=== PATIENT | female | born 1985 ===

== ENCOUNTER 2020-09-21 13:29 | Outpatient (REF) | payer OTHER, SELFPAY ==
[2020-09-21 14:15] LABS: COVID-19 Test Negative (Negative)
== END 2020-09-21 13:30 | disposition home or self-care (01) ==
LOC: HO.EMPCOV 13:29
PROVIDERS: Visit Provider Internal Medicine
DX: Z20.828 Contact with and (suspected) exposure to other viral communicable diseases (principal)
CPT/HCPCS: 87635; C9803

== ENCOUNTER 2020-09-24 15:19 | Outpatient (REF) | payer OTHER, SELFPAY ==
[2020-09-24 15:41] LABS: COVID-19 Test Negative (Negative)
== END 2020-09-24 15:20 | disposition home or self-care (01) ==
LOC: HO.LAB 15:19
PROVIDERS: Visit Provider Internal Medicine
DX: Z20.828 Contact with and (suspected) exposure to other viral communicable diseases (principal)
CPT/HCPCS: 87635; C9803

== ENCOUNTER 2021-03-01 08:51 | Outpatient (REF) | payer OTHER, SELFPAY ==
[2021-03-01 09:17] LABS: COVID-19 Test Negative (Negative)
== END 2021-03-01 08:52 | disposition home or self-care (01) ==
LOC: HO.EMPCOV 08:51
PROVIDERS: Visit Provider Internal Medicine
DX: Z20.822 Contact with and (suspected) exposure to COVID-19 (principal)
CPT/HCPCS: 36415; 87635; C9803

== ENCOUNTER 2021-04-02 21:21 | Emergency (ER) | payer OTHER, SELFPAY ==
--- NOTE | ~2021-04-02 | XR_ITS ---
EXAMINATION: XR NASAL BONES CLINICAL INFORMATION: Trauma. Pain. Epistaxis COMPARISON: None TECHNIQUE: 3 views of the nasal bones were obtained. FINDINGS: No fracture. Nasal bones and maxillary spines are intact. Paranasal sinuses are normally aerated. XR/XR nasal bones min 3V IMPRESSION: Unremarkable examination.
[2021-04-02 23:03] VITALS: BP 119/79; PULSE 91; RESP 14; TEMP 36.9; O2SAT 99; BMI 25.7
--- NOTE | 2021-04-03 00:12 | ED_ITS ---
HPI - General Adult General Chief complaint: Head Injury Stated complaint: nose inj Time Seen by Provider: 04/03/21 00:10 Source: patient Mode of arrival: ambulatory History of Present Illness HPI narrative: 35-year-old female without significant past medical history who presents after stating she stepped on a rake which cause a handle to flip up and strike her in the nose. She states that she had copious amounts of bleeding afterwards and was concerned that she may have fractured her nose. She denies any headache or visual changes or LOC. Related Data Previous Rx's Medication Instructions Recorded nitrofurantoin 100 mg PO BID 5 Days #10 cap 09/20/20 monohydrate/macrocrystals 100 mg capsule Allergies Allergy/AdvReac Type Severity Reaction Status Date / Time Penicillins [PENICILLINS] Allergy Unknown DIFFICULTY Unverified 07/26/20 17:03 BREATHING eggs Allergy Unknown Uncoded 05/03/20 00:00 penicillin Allergy Unknown Uncoded 05/03/20 00:00 Review of Systems Review of Systems: Pertinent positives and negatives as stated in HPI 10 point review of systems is otherwise negative. PMFSH Past Medical History Source: nursing notes reviewed Medical History No known health problems Social History Social History Advance Directives: No Patient : No Physical Exam Vital Signs: Vital Signs: Last Vital Signs Temp 98.4 F 04/02/21 23:03 Pulse 91 04/02/21 23:03 Resp 14 04/02/21 23:03 BP 119/79 04/02/21 23:03 Pulse Ox 99 04/02/21 23:03 Body Mass Index 25.7 VITAL SIGNS: Reviewed. GENERAL: Well developed, well nourished, in no acute distress. HEAD: Normocephalic/atraumatic EYES: PERRLA, EOMI EARS: Ext canals without abnormality NOSE: Nares patent bilateral, no septal hematoma OROPHARYNX: no oral lesions noted, posterior pharynx clear LUNGS: Normal breath sounds. SpO2<99> CARDIOVASCULAR: Regular rate and rhythm without noted murmurs ABDOMEN: Soft, non-tender, non-distended with bowel sounds. Course Course Course Narrative: 35-year-old female with history and clinical presentation consistent with contusion versus fracture to nose. On review of x-ray there is no evidence of fracture and patient was provided with combination analgesics and discharge in stable condition to home. Discharge Plan Discharge Clinical Impression: Contusion of nose, initial encounter Patient Disposition: Home, Self-Care Instructions: Nasal Contusion (ED) Additional Instructions: 1. Tylenol 1000 mg, orally, every 6 hours as needed for pain control. Do not exceed 4000 mg within 24 hours. 2. Ibuprofen 400 mg, orally with milk or food, every 6 hours as needed pain control. 3. In addition, you may apply ice for 5-10 minutes on unexposed skin for additional pain relief. 4. Please follow up with the primary care provider in the next 2-3 days for re- evaluation. Return to the ER for any acute worsening of your symptoms. Prescriptions: No Action nitrofurantoin monohyd/m-cryst [Macrobid] 100 mg capsule 100 mg PO BID 5 Days Qty: 10 RF: 0 Referrals: Physician,Unknown [Primary Care Provider] - 2 days
[2021-04-03] MEDS: Ibuprofen 400 MG TABLET PO (00:26)
[2021-04-03] MEDS: Acetaminophen 325 MG TABLET 975 MG PO (00:27)
== END 2021-04-03 00:37 | disposition home or self-care (01) ==
PROVIDERS: Emergency Provider Student in an Organized Health Care Education/Training Program
DX: S00.33XA Contusion of nose, initial encounter (principal); W22.8XXA Striking against or struck by other objects, initial encounter; Y93.H2 Activity, gardening and landscaping; Y92.017 Garden or yard in single-family (private) house as the place of occurrence of the external cause; Y99.9 Unspecified external cause status
CPT/HCPCS: 70160; 99283; 99284

== ENCOUNTER 2023-02-02 10:14 | Emergency (ER) | payer OTHER, SELFPAY ==
--- NOTE | ~2023-02-02 | XR_ITS ---
EXAMINATION: XR HIP, RIGHT CLINICAL INFORMATION: Pain, status post fall COMPARISON: None available. TECHNIQUE: Two views of the right hip. Pelvis one view FINDINGS: There are lucencies projected over the femoral neck and intertrochanteric region, suspected to be to overlapping densities. No definite acute fracture. No dislocation. Hip joint space is maintained. Left hip joint is intact. No acute pubic rami fractures. No pelvic fractures seen. SI joints and symphysis pubis are intact. No abnormal soft tissue calcification. XR/XR hip RT w PEL1V IMPRESSION: No convincing radiographically evident acute right hip fracture or dislocation. Lucencies projected over the proximal right femur, appear to be related to overlapping densities. If there is clinical concern for radiographically occult injury, persistent symptoms, further evaluation with CT or MRI can be obtained, as clinically warranted.
--- NOTE | ~2023-02-02 | CT_ITS ---
EXAMINATION: CT FEMUR WITHOUT CONTRAST, RIGHT CLINICAL INFORMATION: Pain. Evaluate for a fracture. Fall. COMPARISON: Right hip and pelvic radiographs dated 02/02/2023. TECHNIQUE: Contiguous axial CT images of the right femur were obtained without contrast. Sagittal and coronal reformats were provided and reviewed. This CT examination was performed using dose optimization techniques as appropriate, variously including the following: *Automated exposure control *Adjustment of mA and/or kV according to patient size (this includes techniques or standardized protocols for targeted exams where dose is matched to indication/reason for exam; i.e. extremities or head) *Use of iterative reconstruction technique DLP: 305 mGy-cm FINDINGS: No acute fracture or dislocation. No concerning lytic or blastic osseous lesion. No evidence of avascular necrosis. No significant joint space narrowing or marginal osteophytes. Tiny accessory ossicle adjacent to the acetabulum. No abnormal soft tissue mass or fluid collection. No significant joint effusion. The visualized intrapelvic structures are unremarkable. The visualized muscles and tendons are grossly intact however, evaluation is limited on CT examination. CT/CT femur RT wo IV con IMPRESSION: No acute fracture or dislocation.
[2023-02-02 10:20] VITALS: BP 125/53; PULSE 71; RESP 18; TEMP 36.9; O2SAT 99; BMI 29.9
--- NOTE | 2023-02-02 10:46 | ED.GENADULT ---
HPI - General Adult General Chief complaint: Extremity Problem Stated complaint: l hip pain fall 2wks ago Time Seen by Provider: 02/02/23 10:42 Source: patient Mode of arrival: ambulatory Limitations: no limitations History of Present Illness HPI narrative: Patient is a 37 year old assigned female at with no reported medical history presenting to the emergency department today with right leg pain. Patient states that on January 20, she fell down 3 steps and landed on her right upper leg / hip. Patient states that she recently is having increasing right sided upper leg pain that is worse with weight bearing on that side. Patient denies any dizziness, lightheadedness, abdominal pain, nausea, vomiting, fever, chills, blurry vision, double vision, loss of vision, chest pain, difficulty breathing, shortness of breath, back pain, night sweats, pain with urination, increased urinary frequency, increased urinary urgency, blood in [his/her/their] urine or stool, syncope or a near syncopal episode, bowel incontinence, bladder incontinence, bowel retention, bladder retention, or any other complaints at this time. Onset (ago): day(s) () Location: right and lower extremity Radiation: non-radiation Severity: mild Severity scale (1-10): 3 Quality: aching Relieving factors: none Exacerbating factors: movement and other (weight bearing) Associated symptoms: denies other symptoms Treatments prior to arrival: none Related Data Previous Rx's Medication Instructions Recorded nitrofurantoin 100 mg PO BID 5 days #10 caps 09/20/20 monohydrate/macrocrystals 100 mg capsule (Macrobid) Allergies Allergy/AdvReac Type Severity Reaction Status Date / Time Penicillins [PENICILLINS] Allergy Unknown DIFFICULTY Verified 04/03/21 00:18 BREATHING eggs Allergy Unknown Unknown Uncoded 04/03/21 00:18 penicillin Allergy Unknown Unknown Uncoded 04/03/21 00:18 Review of Systems Constitutional: Constitutional: Reports no additional constitutional complaints, Denies chills, Denies fever(s) and Denies night sweats Eyes: Eyes: Reports no additional eye complaints, Denies blurry vision, Denies change in vision, Denies diplopia, Denies eye discharge, Denies loss of vision and Denies eye pain ENT: Denies dizziness Cardiovascular: Cardiovascular: Reports no additional cardiovascular complaints, Denies chest pain, Denies lightheadedness, Denies Loss of Consciousness and Denies dyspnea Respiratory: Respiratory: Reports no additional respiratory complaints and Denies dyspnea Gastrointestinal: Gastrointestinal: Reports no additional gastrointestinal complaints, Denies abdominal pain, Denies melena, Denies hematochezia, Denies change in bowel habits and Denies change in stool character Genitourinary: Genitourinary: Denies hematuria, Denies urinary frequency, Denies dysuria, Denies urinary incontinence, Denies urinary hesitancy and Denies urinary urgency Musculoskeletal: Musculoskeletal: Reports no additional musculoskeletal complaints, Denies numbness and Denies tingling Comments: right upper leg pain Neurologic: Denies dizziness, Denies loss of vision, Denies numbness and Denies tingling Psychiatric: Psychiatric: Reports no additional psychiatric complaints Endocrine: Endocrine: Reports no additional endocrine complaints Hematologic/Lymphatic: Hematologic/Lymphatic: Reports no additional hematologic/lymphatic complaints Allergic/Immunologic: Allergic/Immunologic: Reports no additional allergic/immunologic complaints PMFSH Past Medical History Attestation statement: The following information was validated with the patient. Source: old records reviewed and nursing notes reviewed Medical History No known health problems Physical Exam ED Vital Signs: Vital Signs - 24 hr 02/02/23 10:20 02/02/23 11:07 Temperature 98.4 F Pulse Rate 71 66 Respiratory Rate 18 18 Blood Pressure 125/53 L 101/68 Pulse Oximetry 99 98 Oxygen Delivery Method Room Air Room Air BMI result Body Mass Index 29.9 Const General: cooperative, no acute distress, alert and awake Nutritional Appearance: well nourished Orientation/consciousness: patient oriented x3 Limitations: no limitations [facility] Head: Yes normal to inspection and Yes atraumatic Ears: hearing grossly normal bilaterally and external ears normal General nose exam: Normal external nose present, no nasal discharge noted and no epistaxis Face and sinus: Yes normal facial exam, No abrasion and No laceration Mouth: Normal oral and palatal mucosa present, no drooling and no muffled voice Eyes General: appearance normal, both eyes and all related structures Periorbital: periorbital findings normal Eyelids: Yes eyelids normal Conjunctivae: conjunctivae normal Pupils: Equal, round and reactive pupils present EOM: EOMs intact bilaterally Neck Neck: Yes normal visual inspection, Yes full ROM and Yes no lymphadenopathy Chest Chest palpation & inspection: normal inspection of the chest Resp Effort & Inspection: normal respiratory effort and able to speak in complete sentences GI Inspection: Yes normal to inspection Neuro General: patient oriented x3 and moves all extremities Cranial nerves: Yes Equal, round and reactive pupils present Cognition (Neuro): normal cognition Motor exam (neuro): 5/5 motor strength present throughout Sensory Exam: Normal double simultaneous stimulation for sensation Coordination: [id number] test normal Extrem General: Yes normal to inspection, Yes full ROM and Yes capillary refill normal Psych Appearance: grossly normal Mental Status: mental status grossly normal Affect: normal affect Attitude: cooperative Thought process: Normal thought process present Thought content: Normal thought content present Insight: Good insight present (Psych) Procedures Orthopedic Splinting/Casting Injury #1: Side: right Lower Extremity Injury Location: upper leg Other Orthopedic Equipment: crutches Medical Decision Making Medical Decision Making MDM Narrative: Patient is a 37 year old assigned female at with no reported medical history presenting to the emergency department today with right upper leg pain. Patient's physical exam was unremarkable. Patient's right hip x-ray showed lucencies over the proximal right femur, rad recommends CT scan if concern for occult injury. Patient's right femur CT showed no acute process. Given the patient's clinical presentation, I'm still concerned for an occult fracture of the right femur. Patient given crutches with crutch instructions and told to toe touch weight bear on the right side until cleared by ortho. I explained my physical exam findings as well as all test results to the patient. I answered all questions asked by the patient. I stressed the importance of the patient taking her medication as prescribed. I stressed the importance of the patient following up with her primary care provider and an orthopedic provider. I stressed the importance of the patient returning to the emergency department immediately if her symptoms were to worsen or if she were to develop any dizziness, shortness of breath, difficulty breathing, chest pain, blurry vision, loss of vision, nausea, vomiting, abdominal pain, fever, chills, back pain, or any other complaints. Patient verbalized agreement and understanding with this treatment plan and discharge. Differential Diagnosis Differential Diagnoses: The differential diagnosis associated with the presentation includes right femur injury Independent Interpretation I performed an independent interpretation of an: Plain X-Ray and CT Scan Interpretation: My interpretation is in agreement with the radiologist's impression of these imaging studies. EXAMINATION: XR HIP, RIGHT CLINICAL INFORMATION: Pain, status post fall COMPARISON: None available. TECHNIQUE: Two views of the right hip. Pelvis one view FINDINGS: There are lucencies projected over the femoral neck and intertrochanteric region, suspected to be to overlapping densities. No definite acute fracture. No dislocation. Hip joint space is maintained. Left hip joint is intact. No acute pubic rami fractures. No pelvic fractures seen. SI joints and symphysis pubis are intact. No abnormal soft tissue calcification. XR/XR hip RT w PEL1V IMPRESSION: No convincing radiographically evident acute right hip fracture or dislocation. Lucencies projected over the proximal right femur, appear to be related to overlapping densities. If there is clinical concern for radiographically occult injury, persistent symptoms, further evaluation with CT or MRI can be obtained, as clinically warranted. ? Dictated By: Braeden Bee MD Signed By: Electronically signed by Braeden Bee MD 02/02/23 1139 EXAMINATION: CT FEMUR WITHOUT CONTRAST, RIGHT CLINICAL INFORMATION: Pain. Evaluate for a fracture. Fall.? ? COMPARISON: Right hip and pelvic radiographs dated 02/02/2023.? TECHNIQUE: Contiguous axial CT images of the right femur were obtained without contrast. Sagittal and coronal reformats were provided and reviewed. ? This CT examination was performed using dose optimization techniques as appropriate, variously including the following: *Automated exposure control *Adjustment of mA and/or kV according to patient size (this includes techniques or standardized protocols for targeted exams where dose is matched to indication/reason for exam; i.e. extremities or head) *Use of iterative reconstruction technique DLP: 305 mGy-cm FINDINGS: No acute fracture or dislocation. No concerning lytic or blastic osseous lesion. No evidence of avascular necrosis. No significant joint space narrowing or marginal osteophytes. Tiny accessory ossicle adjacent to the acetabulum. No abnormal soft tissue mass or fluid collection. No significant joint effusion. The visualized intrapelvic structures are unremarkable. The visualized muscles and tendons are grossly intact however, evaluation is limited on CT examination.? CT/CT femur RT wo IV con IMPRESSION: No acute fracture or dislocation. Dictated By: Simba Prajapati MD Signed By: Electronically signed by Simba Prajapati MD 02/02/23 0712 Discharge Plan Discharge Clinical Impression: Leg pain Patient Disposition: Home, Self-Care Instructions: Crutch Instructions (ED), Leg Pain (ED) Additional Instructions: Follow up with your primary care provider and an orthopedic provider. Return to the emergency department immediately if your symptoms worsen or if you develop any dizziness, shortness of breath, difficulty breathing, chest pain, blurry vision, loss of vision, nausea, vomiting, abdominal pain, fever, chills, back pain, or any other complaints. Prescriptions: No Action nitrofurantoin monohyd/m-cryst [Macrobid] 100 mg capsule 100 mg PO BID 5 Days Qty: 10 0RF Rx Instructions: must administer with a meal/food Referrals: [facility] [[place] Group] (Call to establish and follow up with a primary care provider. If you already have a primary care provider, please follow up with them.) [facility] [place] [Provider Group] (Call to establish and follow up with a primary care provider. If you already have a primary care provider, please follow up with them.) [facility] [place] [Provider Group] (Call to establish and follow up with a primary care provider. If you already have a primary care provider, please follow up with them.) [facility] [place] [facility] [Provider Group] (Call to establish and follow up with an orthopedic provider. ) Stand Alone Forms: Work/School Release Interventions: ED Discharge Assessment Last Done: 02/02/23 13:52 Discharge Date/Time: 02/02/23 13:53 Print Language: Cymraes
[2023-02-02 11:07] VITALS: BP 101/68; PULSE 66; RESP 18; O2SAT 98
== END 2023-02-02 13:53 | disposition home or self-care (01) ==
PROVIDERS: Emergency Provider Student in an Organized Health Care Education/Training Program
DX: S89.91XA Unspecified injury of right lower leg, initial encounter (principal); S79.911A Unspecified injury of right hip, initial encounter; W10.9XXA Fall (on) (from) unspecified stairs and steps, initial encounter; Y93.9 Activity, unspecified; Y92.9 Unspecified place or not applicable; Y99.9 Unspecified external cause status; Z79.899 Other long term (current) drug therapy
CPT/HCPCS: 29505; 73502; 73700; 99282; 99284

== ENCOUNTER → 2023-02-03 11:21 | Outpatient (BNVA) | payer OTHER, SELFPAY | PROVIDERS: Visit Provider Physician Assistant | DX: Z13.89 Encounter for screening for other disorder (principal) ==

== ENCOUNTER 2024-02-03 10:00 | Outpatient (AMB) | payer OTHER, SELFPAY ==
--- NOTE | 2024-02-03 10:03 | A.OFFVIS_ITS ---
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 Patient reports that she is having mid back pain, she feels shooting pains/spasms in the middle of pain that has been ongoing for about a week. denies numbness and tingling. She has tried Tylenol, Ibuprofen, Lidocane Patches as well as Bengay cream. This cream is the most helpful for her. Allergies Penicillins [PENICILLINS] Allergy (Unknown, Verified 02/03/23 11:27) DIFFICULTY BREATHING eggs Allergy (Unknown, Uncoded 04/03/21 00:18) Unknown penicillin Allergy (Unknown, Uncoded 04/03/21 00:18) Unknown Medication List - Last Reconciled 02/03/24 by Paula Krishna MD No Known Home Meds HPI HPI Comments History of Present Illness Details Only 1 week of back pain, first time to have such. Her job here in [employer]rology entails more sitting 8 hours/day 2.5 days/week. 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 Denies recent fall. No recent heavy lifting. She hasn't done any physical activities/exercise since fall and right hip pain last year. That right hip is resolved. Upper right back, going towards the middle. Feels hot . More severe with activities, feels grabbing twisting . Feels better to stretch. No radiation to chest, arms or legs. No numbness. No weakness. Treatment done so far: alleve 220mg up to 3 times a day, 4 days switched to ibuprofen 800mg q6-8, 3 days bengay helped much more PFSH Medical History No known health problems Review of Systems Const All systems reviewed & are unremarkable except as noted in HPI and below Physical Exam Vital Signs: BMI result Body Mass Index 29.9 Constitutional: Patient appears to be in no acute distress, well nourished and well developed. Patient was appropriately conversant and oriented. Good historian. MSK: Inspection reveals appropriate head and neck positioning. No pain with palpation over the neck musculature. Tender at level of T4, right T4 paraspinals versus rhomboids? Possible convexity right thoracic area. Cervical ROM was full. Spurling's sign negative. Bilateral shoulder, elbow and wrist ROM WNL. No ligamentous laxity or crepitance. No increased effusion. No specific abnormalities or instability found on inspection and palpation of the spine and extremities. Leg length discrepancy, true leg length 89 cm on left, 88 cm on right. Lumbar ROM was full. Strength is 5/5 in all muscle groups tested. No increased tone noted. Neurological: Neurologic examination of the upper and lower extremities was nonfocal with intact sensation, muscle stretch reflexes and without focal motor deficits . Jones?s negative bilaterally. Babinski was down going bilaterally. Clonus was negative. Gait is non-antalgic without loss of balance. Results Reviewed Results Reviewed: I reviewed records from the following: Ortho and ER, 2022 Assessment & Plan Assessment & Plan (1) Thoracic back pain: Code(s): M54.6 - Pain in thoracic spine Qualifiers: Chronicity: acute Back pain laterality: right Qualified Code(s): M54.6 - Pain in thoracic spine (2) Myofascial pain: Code(s): M79.18 - Myalgia, other site (3) Scoliosis: Code(s): M41.9 - Scoliosis, unspecified Qualifiers: Scoliosis type: unspecified scoliosis Spinal region: thoracic Qualified Code(s): M41.9 - Scoliosis, unspecified Plan Suspect acute thoracic sprain, no signs of thoracic radiculopathy. Exam shows possible scoliosis. Mild leg length discrepancy, left longer than right by 1 cm. Suspect that would add to tendency for myofascial pain and poor biomechanics. Sending to physical therapy. We will do thoracic x-ray today, more to evaluate for scoliosis. No suspicion for fracture. Can continue ibuprofen and Reji Matthews at home as needed. Assessment and plan discussed with patient, and patient was agreeable. All questions were answered thoroughly. Follow-up 6-8 weeks. Paula Krishna MD, ANDREA Board Certified, [place] [employer] and [employer] (ABPMR) Board Certified, [place] [employer] Electrodiagnostic Medicine (ABEM) Orders: Orders PT Evaluation and Treatment Today M41.9 - Scoliosis, unspecified, M54.6 - Pain in thoracic spine, M79.18 - Myalgia, other site XR thoracic spine 3V Today M54.6 - Pain in thoracic spine, M79.18 - Myalgia, other site Coding Level of Care Code New Pt Level 4 (69775) Diagnoses Acute right-sided thoracic back pain M54.6 Chronicity: acute Back pain laterality: right Myofascial pain M79.18 Scoliosis of thoracic spine, unspecified scoliosis type M41.9 Scoliosis type: unspecified scoliosis Spinal region: thoracic
[2024-02-03 10:04] VITALS: BMI 29.9
[2024-02-03 10:08] VITALS: BMI 29.9
== END 2024-02-03 11:49 | disposition home or self-care (01) ==
PROVIDERS: Visit Provider Physical Medicine & Rehabilitation
DX: M54.6 Pain in thoracic spine (principal); M79.18 Myalgia, other site; M41.9 Scoliosis, unspecified
CPT/HCPCS: 99204

== ENCOUNTER 2024-02-03 10:00 | Outpatient (REF) | payer OTHER, SELFPAY ==
--- NOTE | ~2024-02-03 | XR_ITS ---
EXAMINATION: XR THORACIC SPINE CLINICAL INFORMATION: Pain T4 area. COMPARISON: Chest radiograph frontal view only of January 30, 2020. TECHNIQUE: Three views of the thoracic spine were obtained. FINDINGS: Mild dextroscoliosis of the thoracic spine. Mild multilevel degenerative changes in the thoracic spine. Mild superior endplate compression deformity at likely the T6 level with mild anterior wedging of subjacent likely T7 vertebral body. Visualization limited due to overlying bone and soft tissue structures. XR/XR thoracic spine 3V IMPRESSION: 1. Mild superior endplate compression deformity at likely the T6 level with mild anterior wedging of subjacent likely T7 vertebral body. 2. Mild multilevel degenerative changes in the thoracic spine.
== END 2024-02-03 10:01 | disposition home or self-care (01) ==
LOC: HO.HOSX 10:00
PROVIDERS: Visit Provider Physical Medicine & Rehabilitation
DX: M54.6 Pain in thoracic spine (principal); M79.18 Myalgia, other site; M41.9 Scoliosis, unspecified
CPT/HCPCS: 72072

== ENCOUNTER 2024-02-12 12:57 | Outpatient (REF) | payer OTHER, SELFPAY ==
--- NOTE | ~2024-02-12 | MR_ITS ---
MR THORACIC SPINE WITHOUT IV CONTRAST CLINICAL INFORMATION: Pain in the thoracic spine. COMPARISON: Thoracic spine radiographs 02/03/2024. TECHNIQUE: MRI of the thoracic spine was obtained using routine sequences without contrast. FINDINGS: 12 rib-bearing thoracic type vertebral bodies. Thoracic alignment is normal. Chronic mild upper endplate compression deformities at T6, T7, and T8. There is no bone marrow edema to suggest an acute fracture. The remaining vertebral body heights are maintained. Mild fluid signal within the central canal of the thoracic spinal cord at T8-T9 of doubtful clinical significance without a jared syrinx. Disc volumes are preserved and the discs remain well-hydrated. The major ligaments are intact. There are no epidural collections. No significant thoracic disc herniations. There is no severe central canal stenosis and there is no severe foraminal stenosis within the thoracic spine. MR/MR thoracic spine wo con IMPRESSION: Chronic mild upper endplate compression deformities at T6, T7, and T8. There is no bone marrow edema to suggest an acute fracture. Mild fluid signal within the central canal of the thoracic spinal cord at T8-T9 of doubtful clinical significance without a jared syrinx.
== END 2024-02-12 12:58 | disposition home or self-care (01) ==
LOC: HO.MRI 12:57
PROVIDERS: Visit Provider Physical Medicine & Rehabilitation
DX: M54.6 Pain in thoracic spine (principal); M43.9 Deforming dorsopathy, unspecified
CPT/HCPCS: 72146

== ENCOUNTER 2024-03-16 14:00 | Outpatient (RCR) | payer OTHER, SELFPAY ==
--- NOTE | 2024-02-18 14:25 | MHC.PT.EP ---
[facility] [place] [facility] [place] Office [place] Office [address] Darrell Estrada [address] [phone] F: [phone] F: [phone] F: [phone] F: [phone] Physical Therapy Plan of Care Date of Evaluation: 02/17/24 Date of Surgery: Diagnosis: thoracic spine pain scoliosis (mild, thoracic) Assessment: Patient is a pleasant 38 y.o. 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 Paula Krishna MD with Dx of thoracic spine pain and scoliosis (mild, thoracic seen on x-ray imaging). She presents with significant compensations in her R lumbar spine/pelvis/hip/thoracic area due to slip and fall last year effecting R lower body. I believe this may have led to muscle imbalances throughout her back, contributing to sxs in her R thoracic area. Patient impairments include poor posture and body ergonimics at work, pain, limited ROM in her back, leg length discrepancy, weakness in hips and mid back, compensations, stiff trunk during gait. Patient current functional limitations are standing coking, reaching with R arm, putting on bra, prolonged sitting. Patient will benefit from skilled PT to address aforementioned impairments and functional limitations to meet established goals. Frequency and Duration: The patient will be seen 1-2x/week for 4 weeks Short Term Goals: 2 weeks Patient demonstrates consistency and independence with HEP to self manage symptoms. 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 Patient presents with increased lumbar spine side bending 30 degrees to improved upper body dressing. Treatment Plan: Modalities to reduce pain, spasms and effusion. Manual therapy to restore motion and function. Therapeutic exercise to improve strength and flexibility. Neuromuscular re-education for posture and balance. Therapeutic activities to return to functional activities of daily living. Electronically signed by: Dann Larson, PT, DPT Please sign and return to therapist. Thank you for your referral.
--- NOTE | 2024-05-05 10:21 | MHC.PT.DC ---
[facility] [place] [facility] [place] Office [place] Office [address] Darrell Estrada [address] [phone] F: [phone] F: [phone] F: [phone] F: [phone] Physical Therapy Discharge Report Diagnosis: thoracic spine pain scoliosis (mild, thoracic) Date of Surgery: Date of Evaluation: 02/17/24 Date of Discharge: 05/05/24 Treatments to Date: 7 Cancellations to Date: No Shows to Date: Discharge Status: Improved Function Independent with HEP Discharge Summary: Arianna completed course of PT. Her last session on 03/16/24 the assessment reads, pt felt ready to D/C today. Reviewed ex program. Issued written program. Pt felt change of work station made the greatest difference. Electronically signed by: Dann Larson, PT, DPT Please sign and return to therapist. Thank you for your referral.
== END 2024-05-05 10:21 | disposition home or self-care (01) ==
LOC: HO.PT 14:00
PROVIDERS: Visit Provider Physical Medicine & Rehabilitation
DX: M54.6 Pain in thoracic spine (principal); M41.9 Scoliosis, unspecified; M79.18 Myalgia, other site
CPT/HCPCS: 97110; 97140; 97161; 97530

== ENCOUNTER 2024-07-27 10:32 | Outpatient (AMB) | payer OTHER, SELFPAY ==
--- NOTE | 2024-07-27 10:50 | MHC.PC.OV ---
Vital Signs 07/27/24 11:06 Height 5 ft Weight 165 lb 4 oz BMI 32.3 BP 92/64 Blood Pressure Location Rt brachial Position Sitting Respiration 12 Pulse 73 Pulse Source Pulse Oximeter Temp 98.3 F Temp Source Oral Pulse Oximetry (%) 97 Oxygen Delivery Method Room Air Intake Visit Reasons: Headache Intake Note: Headaches Allergies Penicillins [PENICILLINS] Allergy (Unknown, Verified 07/27/24 10:59) DIFFICULTY BREATHING eggs Allergy (Unknown, Uncoded 07/27/24 10:59) Unknown penicillin Allergy (Unknown, Uncoded 07/27/24 10:59) Unknown Medication List - Last Reconciled 07/27/24 by Lauren Thomson PA-C No Known Home Meds Tobacco use date assessed: 07/27/24 Dental Screening Dental Screen Date: 07/27/24 Did you have a dental visit in the last 12 months?: No Did you have a dental problem in the last 6 months where you did not have access to dental care?: No Was dental information given to patient?: Patient declined HPI Headache HPI Details Patient is a 38-year-old female who presents today with complaints of a left-sided headache. Her symptoms started a week ago. She states it feels like it comes from the neck and radiates into the head and down the left arm. She states that the pain can be sharp and shooting, tingling and burning. She states that it is almost always there with this constant discomfort but comes and goes in waves of increased pain. Nothing seems to trigger it. She tried excedrin and it took away the pain but then it returns. No neck injury. No increased stress. She denies any changes. She denies any vision changes, nausea, vomiting, abnormal gait or weakness. Overdue for an eye exam. She has not had a PCP since prior to the pandemic. She reports today that she has a history of PCOS but recently has been having clots with her menses. She says that this is abnormal for her. Over the last 6 months she states her period has been very heavy and she has been having some breakthrough bleeding. It has never been like this before. It is usually regular but can be off by a little bit. She has had to change her tampon every couple hours. She did have ovarian torsion about 20 years ago and had right oophorectomy. 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 1. Little interest or pleasure in doing things: not at all 2. Feeling down, depressed, or hopeless: not at all 3. Trouble falling or staying asleep, or sleeping too much: several days 4. Feeling tired or having little energy: several days 5. Poor appetite or overeating: several days 6. Feeling bad about yourself - or that you are a failure or have let yourself or your family down: not at all 7. Trouble concentrating on things, such as reading the newspaper or watching television: not at all 8. Moving or speaking so slowly that other people could have noticed. Or the opposite - being so fidgety or restless that you have been moving around a lot more than usual: not at all 9. Thoughts that you would be better off or of hurting yourself in some way: not at all Total score: 3 Source: Developed by Drs. Davion Raymond, Ila Green, You Monk and colleagues, with an educational evon from [employer]. Thrive Questionnaire I am a: Patient What is your living situation today?: I have a steady place to live Within the past 12 months, did the food you bought not last and you didn't have the money to get more?: Never true Within the past 12 months, did you worry whether your food would run out before you got money to buy more?: Never true Do you have trouble paying for medicines?: No Do you have trouble getting transportation to medical appointments?: No Do you have trouble paying your heating and electricity bill?: No Do you have trouble taking care of your child, family member or friend?: No Do you have trouble with day-to-day activities such as bathing, preparing meals, shopping, managing finances, etc.?: No Are you currently unemployed and looking for a job?: No Are you interested in more education?: Yes Please select the resources that you would like help with: None Currently or been in a relationship where the following occur: No concerns reported THRIVE Score: 0 AUDIT C Alcohol Use Questionnaire (AUDIT-C) 1. How often do you have a drink containing alcohol?: Monthly or less 2. How many drinks containing alcohol do you have on a typical day when you are drinking?: 1 or 2 3. How often do you have six or more drinks on one occasion?: Less than monthly Total Score: 2 INGRID-7 AMB Questionnaire INGRID-7 Feeling nervous, anxious, or on edge: 1 = Several days Not being able to stop or control worryin = Not at all Worrying too much about different things: 0 = Not at all Trouble relaxin = Not at all Being so restless that it is hard to sit still: 0 = Not at all Becoming easily annoyed or irritable: 0 = Not at all Feeling afraid as if something awful might happen: 0 = Not at all Total INGRID-7 score (0-4 normal; 5-9 mild; 10-14 moderate; 15-21 severe): 1 Source: Developed by Drs. Davion Raymond, Ila Green, You Monk and colleagues, with an educational evon from [employer]. Physical exam (Primary Care) Vital Signs: Last Vital Signs Temp 98.3 F 07/27/24 11:06 Pulse 73 07/27/24 11:06 Resp 12 07/27/24 11:06 BP 92/64 07/27/24 11:06 Pulse Ox 97 07/27/24 11:06 Oxygen Delivery Method Room Air 07/27/24 11:06 BMI result Body Mass Index 32.3 Tobacco/Smoking Status: Tobacco use Status Tobacco use date assessed 07/27/24 07/27/24 11:10 Patient Tobacco Use Status Former Tobacco user 07/27/24 11:10 e-Cigarette/Vaping Use Never Used 07/27/24 11:10 PHQ-9: PHQ-9 Score PHQ-9: Total score 3 07/27/24 12:13 Currently or been in a relationship where the following occur: No concerns reported Const Orientation/consciousness: patient oriented x3 HENMT Ears: hearing grossly normal bilaterally Neck Thyroid: Thyroid normal Lymphatic: no lymphadenopathy noted Resp Auscultation: clear to auscultation bilaterally Cardio Rate: regular rate Rhythm: regular rhythm Heart sounds: S1 normal heart sound present and S2 normal heart sound present GI Inspection: Yes normal to inspection Palpation (GI): Soft to palpation and Other GI palpation findings present (nontender, no cva tenderness) Auscultation: normoactive bowel sounds Rectal Exam - Female: deferred Back/Spine/Pelvis Cervical Spine: cervical ROM normal and cervical muscular tenderness Skin General skin exam: no rashes or lesions noted Neuro General: patient oriented x3, gait normal, no focal motor deficits and CN's II-XI intact bilaterally Gait exam (Neuro): Normal gait present Motor exam (neuro): 5/5 motor strength present throughout Sensory Exam: double simultaneous stimulation for sensation normal Coordination: [id number] test normal and Romberg test negative Assessment and Plan Assessment & Plan (1) Neck pain: Code(s): M54.2 - Cervicalgia Plan: I do believe that most of her pain is likely coming from the neck. We will try prednisone taper. Discussed risks and benefits and adverse effects of this medication. X-ray ordered. Labs ordered today. (2) Paresthesia of left upper and lower extremity: Code(s): R20.2 - Paresthesia of skin Plan: As above. Strength appears intact. (3) New daily persistent headache: Code(s): G44.52 - New daily persistent headache (NDPH) Plan: As above. She does not have a history of headaches. MRI ordered. We will follow up pending test results. Labs ordered. (4) Menorrhagia with irregular cycle: Code(s): N92.1 - Excessive and frequent menstruation with irregular cycle Plan: Ultrasound ordered. Advised to follow up with Gynecology. Orders: Orders Complete Blood Count Auto Diff Today G44.52 - New daily persistent headache (NDPH), M54.2 - Cervicalgia, R20.2 - Paresthesia of skin Lipid Panel Today G44.52 - New daily persistent headache (NDPH), M54.2 - Cervicalgia, R20.2 - Paresthesia of skin Hemoglobin A1c Today G44.52 - New daily persistent headache (NDPH), M54.2 - Cervicalgia, R20.2 - Paresthesia of skin Lyme IgG/IgM w/reflex to WB Today G44.52 - New daily persistent headache (NDPH), M54.2 - Cervicalgia, R20.2 - Paresthesia of skin Vitamin B12 and Folate Today G44.52 - New daily persistent headache (NDPH), M54.2 - Cervicalgia, R20.2 - Paresthesia of skin Magnesium Today G44.52 - New daily persistent headache (NDPH), M54.2 - Cervicalgia, R20.2 - Paresthesia of skin XR cervical spine 3V Today M54.2 - Cervicalgia, R20.2 - Paresthesia of skin Comprehensive [place]. Panel Fast Today G44.52 - New daily persistent headache (NDPH), M54.2 - Cervicalgia, R20.2 - Paresthesia of skin IRON PROFILE Today G44.52 - New daily persistent headache (NDPH), M54.2 - Cervicalgia, R20.2 - Paresthesia of skin Ferritin Today G44.52 - New daily persistent headache (NDPH), M54.2 - Cervicalgia, R20.2 - Paresthesia of skin TSH reflex Free T4 Today G44.52 - New daily persistent headache (NDPH), M54.2 - Cervicalgia, R20.2 - Paresthesia of skin US pelvic and transvaginal Today N92.1 - Excessive and frequent menstruation with irregular cycle MR head/brain wo con Today G44.52 - New daily persistent headache (NDPH), M54.2 - Cervicalgia, R20.2 - Paresthesia of skin Medications: New prednisone take 3 tab po x 3 days, take 2 tab po x 3 days, 1 tab po x 3 days 18 tabs 0RF Coding Level of Care Code New Pt Level 4 (84526) Complex EM visit Add On G2211 Diagnoses Neck pain M54.2 Paresthesia of left upper and lower extremity R20.2 New daily persistent headache G44.52 Menorrhagia with irregular cycle N92.1
[2024-07-27 11:06] VITALS: BP 92/64; PULSE 73; RESP 12; TEMP 36.8; O2SAT 97; BMI 32.3
== END 2024-07-27 11:40 | disposition home or self-care (01) ==
PROVIDERS: PCP Physician Assistant; Visit Provider Physician Assistant
DX: M54.2 Cervicalgia (principal); R20.2 Paresthesia of skin; G44.52 New daily persistent headache (NDPH); N92.1 Excessive and frequent menstruation with irregular cycle

== ENCOUNTER → 2024-07-27 10:32 | Outpatient (BNVA) | payer OTHER, SELFPAY | PROVIDERS: Visit Provider Physician Assistant | DX: M54.2 Cervicalgia (principal); R20.2 Paresthesia of skin; G44.52 New daily persistent headache (NDPH); N92.1 Excessive and frequent menstruation with irregular cycle | CPT/HCPCS: 96127 ==

== ENCOUNTER 2024-08-01 08:10 | Outpatient (REF) | payer OTHER, SELFPAY ==
[2024-08-01 10:34] LABS: MANUAL DIFF FLAG NO
[2024-08-01 10:43] LABS: Basophils Percent Auto 0.7 % (0-2); Eosinophils Absolute Auto 0.1 X10*3/uL (0.0-0.4); Eosinophils Percent Auto 1.4 % (0-4); Hematocrit 37.2 % (37.0-47.0); Hemoglobin 12.8 g/dl (12.0-16.0); Imm Gran Abs Auto 0.01 X10*3/uL (0.00-0.03); Imm Gran Pct Auto 0.2 % (0.0-0.4); Lymphocytes Absolute Auto 1.7 X10*3/uL (1.2-4.9); Lymphocytes Percent Auto 29.9 % (20-40); Mean Corpuscular HGB Conc 34.4 g/dl (31.0-35.0); Mean Corpuscular Hemoglobin 31.9 pg (27.0-33.0); Mean Corpuscular Volume 92.8 fL (80.0-98.0); Mean Platelet Volume 10.7 fL (9.4-12.3); Monocytes Absolute Auto 0.6 X10*3/uL (0.1-1.2); Monocytes Percent Auto 11.4 % (2-11); Neutrophils Absolute Auto 3.2 x10*3/uL (2.0-8.3); Neutrophils Percent Auto 56.4 % (45-73); Platelet Count 230 X10*3/uL (160-400); Red Blood Count 4.01 X10*6/uL (4.20-5.50); Red Cell Distribution Width 11.5 % (11.0-16.0); White Blood Count 5.6 X10*3/uL (4.8-10.8)
[2024-08-01 11:00] LABS: Estimated Average Glucose 85 mg/dL; Hemoglobin A1c % 4.6 % (<6.0); Total Hemoglobin (HGBA1C) 3497.4618 umol/L
[2024-08-01 11:24] LABS: Alanine Aminotransferase 18 U/L (0-31); Alkaline Phosphatase 51 U/L (39-117); Anion Gap 10 (12-20); Aspartate Amino Transferase 14 U/L (5-31); Bilirubin Total 0.6 mg/dL (0.0-1.0); Blood Urea Nitrogen 14 mg/dL (9-16); Carbon Dioxide 26 mmol/L (22-29); Chloride 109 mmol/L (96-108); Cholesterol 150 mg/dL (<200); Estimated Glomerular Filt Rate > 60; Glucose Fasting 85 mg/dL (60-99); HDL Cholesterol 40 mg/dL (>40); Iron 52 mcg/dL (30-160); LDL Cholesterol Calculated 97 mg/dL (<100); Magnesium 2.2 mg/dL (1.6-2.6); Percent Iron Saturation 24 % (15-50); Potassium 3.8 mmol/L (3.3-5.1); Sodium 141 mmol/L (135-145); Total Iron Binding Capacity 215 mcg/dL (228-428); Total Protein 7.4 g/dL (6.5-8.0); Triglycerides 65 mg/dL (<150); Unsaturated Iron Binding 163 ug/dL
[2024-08-01 11:48] LABS: Ferritin 84 ng/mL (10-122); TSH reflex Free T4 1.63 uIU/mL (0.32-4.0)
[2024-08-01 11:49] LABS: Folate 8.2 ng/mL (> or = 4.0); Vitamin B12 281 pg/mL (200-900)
[2024-08-02 17:39] LABS: Lyme Abs Screen <0.90 index
== END 2024-08-01 08:11 | disposition home or self-care (01) ==
LOC: HO.10HDL 08:10
PROVIDERS: Visit Provider Physician Assistant
DX: Z13.1 Encounter for screening for diabetes mellitus (principal); Z13.6 Encounter for screening for cardiovascular disorders; M54.2 Cervicalgia; R20.2 Paresthesia of skin; G44.52 New daily persistent headache (NDPH)
CPT/HCPCS: 36415; 80053; 80061; 82607; 82728; 82746; 83036; 83540; 83735; 84443; 85025; 86617; 86618

== ENCOUNTER 2024-08-08 11:14 | Outpatient (REF) | payer OTHER, SELFPAY ==
--- NOTE | ~2024-08-08 | MR_ITS ---
EXAMINATION: MR BRAIN WITHOUT CONTRAST CLINICAL INFORMATION: Paresthesias of the skin. COMPARISON: None available. TECHNIQUE: MRI of the brain was obtained using routine sequences without contrast. FINDINGS: Submitted for interpretation on 09/09/2024. No restricted diffusion. No acute intracranial hemorrhage, mass effect, midline shift, hydrocephalus or herniation. Ash-white matter differentiation is normal. Posterior cranial fossa contents demonstrated no gross masses or signal abnormality. Sellar/suprasellar region demonstrated no signal abnormality or gross mass. Craniocervical junction is intact and normal. Midline structures are normal. Flow-void signal within the main cerebral vessels is normal. MR/MR head/brain wo con IMPRESSION: No acute or structural brain abnormality. Electronically signed by: Leon Riggs MD 09/09/2024 08:59 AM EDT
== END 2024-08-08 11:15 | disposition home or self-care (01) ==
LOC: HO.MRI 11:14
PROVIDERS: Visit Provider Physician Assistant
DX: R20.2 Paresthesia of skin (principal); M54.2 Cervicalgia; G44.52 New daily persistent headache (NDPH)
CPT/HCPCS: 70551

== ENCOUNTER → 2024-08-08 11:19 | Outpatient (BNV) | payer OTHER, SELFPAY | PROVIDERS: Visit Provider Radiology Diagnostic Radiology | DX: R20.2 Paresthesia of skin (principal) | CPT/HCPCS: 70551 ==

== ENCOUNTER 2025-03-07 09:38 | Outpatient (AMB) | payer OTHER, SELFPAY ==
--- NOTE | 2025-03-07 11:22 | AM.OFFWIN_ITS ---
Intake Vital Signs 03/07/25 11:32 BP 104/62 Blood Pressure Location Rt brachial Position Sitting Pulse 76 Pulse Source Pulse Oximeter Pulse Oximetry (%) 97 Oxygen Delivery Method Room Air Intake Visit Reasons: EP strep?? [phone] (car) Intake Note: Patient here for sore throat that has been present for 3 days. Patient Tobacco Use Status: Former Tobacco user Allergies Penicillins [PENICILLINS] Allergy (Unknown, Verified 03/07/25 11:32) DIFFICULTY BREATHING eggs Allergy (Unknown, Uncoded 03/07/25 11:32) Unknown penicillin Allergy (Unknown, Uncoded 03/07/25 11:32) Unknown Do you need a note to return to daycare/school/sports/work: No HPI HPI Comments History of Present Illness Details Patient is a 39-year-old female with no significant past medical history complaining of a cough, mild headache and sore throat x3 days. Also has pain when swallowing. Denies fevers, shortness of breath or wheezing. Denies ear pain, sinus pain or body aches. Admits to a sick contact with strep one week ago. Has been taking Nyquil with some relief, able to sleep. Denies asthma or copd; does not smoke. Denies seasonal allergies. 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 Current occupational exposures/hazards: No Cognitive needs: No Hearing needs: No Vision needs: No Review of Systems Const All systems reviewed & are unremarkable except as noted in HPI and below Physical Exam Vital Signs: Last Vital Signs Pulse 76 03/07/25 11:32 BP 104/62 03/07/25 11:32 Pulse Ox 97 03/07/25 11:32 Oxygen Delivery Method Room Air 03/07/25 11:32 Const General: cooperative, healthy appearing, comfortable and no acute distress Orientation/consciousness: patient oriented x3 Limitations: no limitations HEENT Head: Yes normal to inspection Ears: hearing grossly normal bilaterally, external ears normal and TM's normal bilaterally General nose exam: Normal external nose present, Normal nares present and No nasal discharge present Face and sinus: Yes normal facial exam and Yes sinuses nontender Mouth: Normal oral and palatal mucosa present and moist mucous membranes Throat: Yes tonsils normal, Yes uvula midline and Yes posterior oropharynx abnormal (Erythema. Swelling, left tonsil greater than right tonsil) Eyes General: appearance normal, both eyes and all related structures Neck Neck: Yes normal visual inspection Resp Effort & Inspection: normal respiratory effort, able to speak in complete sentences, no respiratory distress, not tachypneic, no tripod positioning and no use of accessory muscles Skin General skin exam: no rashes or lesions noted Neuro General: patient oriented x3 Extrem General: Yes normal to inspection and Yes no clubbing, cyanosis or edema Results AMB Rapid Strep AMB Rapid Strep Negative Last Edit by CLARA Lopez on 03/07/25 11:43 Assessment & Plan Assessment & Plan (1) Strep pharyngitis: Code(s): J02.0 - Streptococcal pharyngitis Plan: Vital signs are stable, patient is well-appearing and physical exam is remarkable for posterior oropharynx erythema with erythema on both tonsils and swelling which is greater on the left tonsil, however airway is completely smiley nt. Centor score 2 points, 11-17% probability of strep pharyngitis. Will treat, as she did have a personal exposure recently. Recommended she use warm salt water rinses and Motrin or Aleve for pain. Patient declined work note Orders: Orders AMB Rapid Strep Screen Today Z13.9 - Encounter for screening, unspecified Medications: New cephalexin 500 mg PO Q12H 10 days 20 caps 0RF Coding Level of Care Code Est Pt Level 3 (40298) Diagnoses Strep pharyngitis J02.0
[2025-03-07 11:32] VITALS: BP 104/62; PULSE 76; O2SAT 97
== END 2025-03-07 11:53 | disposition home or self-care (01) ==
PROVIDERS: PCP Physician Assistant; Visit Provider Physician Assistant
DX: Z13.9 Encounter for screening, unspecified (principal); J02.0 Streptococcal pharyngitis

== ENCOUNTER → 2025-03-07 09:38 | Outpatient (BNVA) | payer OTHER, SELFPAY | PROVIDERS: PCP Physician Assistant; Visit Provider Physician Assistant | DX: J02.0 Streptococcal pharyngitis (principal) | CPT/HCPCS: 87880 ==